=== PATIENT | female | born 1965 | race Asian ===

== ENCOUNTER 2018-04-20 18:19 | Outpatient (CLI) | payer OTHER | END 2018-04-20 18:20 | disposition critical access hospital (66) | LOC: EMS 18:19 | PROVIDERS: ATTEND Surgery | DX: R06.02 Shortness of breath (principal); R07.9 Chest pain, unspecified; R11.0 Nausea | CPT/HCPCS: A0425; A0427 ==

== ENCOUNTER 2018-04-20 18:41 | Emergency (ER) | payer OTHER ==
[2018-04-20] MEDS ORDERED: LORazepam 2 MG/ML VIAL IVP STA (19:00)
--- NOTE | 2018-04-20 19:06 | ED Physician Documentation ---
History of Present Illness - Stated complaint Stated Complaint: ANXIETY/CP - Chief complaint Chief Complaint: Resp - History obtained from History obtained from: Patient, EMS - History of Present Illness Timing: How many hours ago (1) Pain level max: 2 Pain level now: 0 Improved by: rest Worsened by: emotional upset - Additonal information Additional information: Patient is a 52-year-old female who was accused of shoplifting today, during questioning she felt herself having a panic attack and 911 was called for her anxiety. She had some chest tightness at that time. Now that she has been removed from the situation she states that her anxiety is better, and the pain has resolved. She did not take her clonazepam yet today. Review of Systems Ten Systems: 10 systems reviewed and negative Constitutional: denies: Fever, Chills Eyes: denies: Decreased vision Ears: denies: Ear pain Nose: denies: Rhinorrhea / runny nose, Congestion Cardiac: denies: Calf pain Respiratory: denies: Cough GI: denies: Abdominal Pain, Nausea, Vomiting, Diarrhea Skin: denies: Rash Musculoskeletal: denies: Neck pain, Back pain Neurologic: denies: Focal weakness, Numbness, Headache Psychiatric: reports: Anxiety. denies: Suicidal, Homicidal, Hallucinations PD PAST MEDICAL HISTORY - Past Medical History Past Medical History: Yes Cardiovascular: Hypertension, High cholesterol Psych: Anxiety - Past Surgical History Past Surgical History: Yes - Present Medications Home Medications: Ambulatory Orders Medication Instructions Recorded Confirmed Telmisartan [Micardis] 40 mg PO DAILY 06/12/15 06/12/15 Clonazepam 0.25 mg PO 04/20/18 04/20/18 - Allergies Allergies/Adverse Reactions: Allergies Allergy/AdvReac Type Severity Reaction Status Date / Time ammonia Allergy Rash Verified 04/20/18 18:50 peroxide Allergy Rash Uncoded 04/20/18 18:50 - Social History Does the pt smoke?: No Smoking Status: Never smoker Does the pt drink ETOH?: No Does the pt have substance abuse?: No PD ED PE NORMAL - Vitals Vital signs reviewed: Yes - General General: Alert and oriented X 3, Other (Appears anxious and tearful) - HEENT HEENT: PERRL, Moist mucous membranes - Neck Neck: Supple, no meningeal sign - Cardiac Cardiac: RRR, Strong equal pulses - Respiratory Respiratory: No respiratory distress, Clear bilaterally - Abdomen Abdomen: Soft, Non tender, Non distended - Derm Derm: Warm and dry - Extremities Extremities: No edema, No calf tenderness / cord - Neuro Neuro: Alert and oriented X 3 - Psych Psych: Normal mood, Normal affect Results - Vitals Vitals: Vital Signs - 24 hr 04/20/18 04/20/18 18:42 19:29 Temperature 37.5 C Heart Rate 97 120 H Respiratory 18 24 Rate Blood Pressure 130/87 H 155/98 H O2 Saturation 98 97 Oxygen O2 Source Room air - EKG (time done) 1850 Rate: Rate (enter#) (103) Rhythm: Sinus tachycardia [place]: Normal Intervals: Normal MA QRS: Normal Ischemia: Normal ST segments PD MEDICAL DECISION MAKING - ED course Complexity details: reviewed results, re-evaluated patient, considered differential (No ST elevation MD, no aortic dissection, no PE, no tension pneumothorax, no aortic aneurysm), d/w patient ED course: 52-year-old female with a panic attack today. Feels better after Ativan. Symptoms resolved. Her triage screen was positive for suicidal ideation. She adamantly denies feeling suicidal currently to me. States that she has 2 boys to live for and that she would not harm herself. She states she will follow-up with her doctor about her depression and anxiety. Patient counseled regarding signs and symptoms for which I believe and urgent re-evaluation would be necessary. Patient with good understanding of and agreement to plan and is comfortable going home at this time This document was made in part using voice recognition software. While efforts are made to proofread this document, sound alike and grammatical errors may occur. Departure - Departure Disposition: 01 Home, Self Care Clinical Impression: Panic attack Condition: Good Instructions: ED Panic Attack Follow-Up: your,doctor tomorrow [Other] Comments: You need to follow-up with your doctor tomorrow about your anxiety. You should take your normal medications at home. You also need to talk to your doctor about your depression. You state you are not suicidal currently and that you want to live for your boys. You have contracted for safety and states that you will not harm yourself. Crisis Line and is available to talk to someone Http://www.[employer].org is also available to chat with someone online if you prefer. There are also many resources on this website and apps for your phone to help with your mental health You can also text the word START to 655-583-4671 to chat with someome via text. Discharge Date/Time: 04/20/18 19:35
[2018-04-20 19:31] VITALS: BP 155/98
== END 2018-04-20 19:35 | disposition home or self-care (01) ==
LOC: EDUNIT# → ED 18:41
DX: F41.0 Panic disorder [episodic paroxysmal anxiety] (principal); R00.0 Tachycardia, unspecified; I10 Essential (primary) hypertension; E78.00 Pure hypercholesterolemia, unspecified
CPT/HCPCS: 93005; 96374; 99283; J2060

== ENCOUNTER 2019-12-30 13:18 | Outpatient (CLI) | payer OTHER ==
--- NOTE | 2019-12-30 15:09 | MRI Report ---
PROCEDURE: Cervical Spine W/O INDICATIONS: PARETHESIA OF SKIN TECHNIQUE: Noncontrast sagittal T1 spin echo and T2 fast spin echo, sagittal STIR, foraminal oblique sagittal T2 fast spin echo, and axial gradient echo or T2 fast spin echo through the cervical spine. COMPARISON: Prior plain film imaging 06/12/2015 reviewed in this patient who has undergone prior ante rior fusion plating crossing C4-C5.. FINDINGS: Image quality: Excellent. Alignment and Curvature: There is normal bony alignment. Bone Marrow: Marrow demonstrates normal overall signal. There is stable positioning of a C4-C5 ante rior fusion plate, producing metal artifact in the immediate adjacent vertebral bodies, but no adjace nt inflammation on this point found that would indicate evidence of loosening or low-grade infection. Spinal Cord: Visualized spinal cord has normal size and signal. No cerebellar tonsillar herniation. Paraspinous Soft Tissues: No paravertebral masses. Prevertebral soft tissues are normal in thicknes s. C2-C3: Normal in appearance. C3-C4: Normal in appearance. C4-C5: Anterior fusion plating, quality of visualization at the vertebral body marrow space is mildl y compromised by metal artifact as a result.. C5-C6: Mild degenerative disc disease with a slight posterior disc bulge, which does produce mild to moderate spinal stenosis as a result. There is effacement of CSF from the anterior thecal sac at and immediately adjacent to the midline. C6-C7: The C6 vertebral body demonstrates presence of a presumed vertebral body hemangioma centrally, and there is a small posterior disc bulge without significant spinal or foraminal stenosis. C7-T1: Normal in appearance. IMPRESSION: Prior C4-C5 anterior fusion plating, which shows no sign of disruption or adjacent inflammation. The current study shows normal alignment established, and mild degenerative disc disease at C5-6 and C6-7 with secondary effacement of anterior CSF within the thecal sac at each of these 2 levels, but witho ut distortion of the adjacent low cervical cord. Overall a definite site of new spinal or foraminal s tenosis is not found. Incidental note is made of a small vertebral body marrow space hemangioma at the C6 segment. Reviewed by: Nghia Hernandez MD on 12/30/2019 3:07 PM PDT Approved by: Nghia Hernandez MD on 12/30/2019 3:07 PM PDT Station ID: [id number]
== END 2019-12-30 13:19 | disposition home or self-care (01) ==
LOC: DI 13:18
PROVIDERS: ATTEND Internal Medicine
DX: M50.322 Other cervical disc degeneration at C5-C6 level (principal); Z98.1 Arthrodesis status
CPT/HCPCS: 72141

== ENCOUNTER 2020-04-08 13:16 | Outpatient (CLI) | payer OTHER ==
--- NOTE | 2020-04-11 13:22 | Mammography Report ---
BILATERAL DIGITAL SCREENING MAMMOGRAM 3D/2D: 04/08/2020 CLINICAL: Routine screening. Comparison is made to exams dated: 07/14/2018 mammogram and 04/04/2015 mammogram - [facility]. There are scattered fibroglandular elements in both breasts. No significant masses, calcifications, or other findings are seen in either breast. There has been no significant interval change. IMPRESSION: NEGATIVE There is no mammographic evidence of malignancy. A 1 year screening mammogram is recommended. This exam was interpreted at Station ID: [id number]. NOTE: For mammograms, a report in lay terms will be sent to the patient. Approximately 15% of breast malignancies will not be visualized mammographically. In the management of a palpable breast mass, a negative mammogram must not discourage biopsy of a clinically suspicious lesion. Electronically Signed By: Scotty vanegas/jarrell:04/08/2020 15:13:48 ACR BI-RADS Category 1: Negative 3341F PARENCHYMAL PATTERN: (A) - The breast(s) demonstrate(s) scattered fibroglandular densities. BI-RADS CATEGORY: (1) - 1 RECOMMENDATION: (ANNUAL) - Recommend routine annual screening mammography. [id number] 1 year screening LATERALITY: (B)
== END 2020-04-08 13:17 | disposition home or self-care (01) ==
LOC: DI.N 13:16
DX: Z12.31 Encounter for screening mammogram for malignant neoplasm of breast (principal)

== ENCOUNTER 2021-07-25 14:04 | Outpatient (CLI) | payer OTHER ==
--- NOTE | 2021-07-26 09:37 | MRI Report ---
PROCEDURE: Shoulder RT W/O INDICATIONS: PAIN IN RIGHT SHOULDER TECHNIQUE: Noncontrast oblique coronal T2 fast spin echo with fat saturation, oblique sagittal T1 spin echo and T2 fast spin echo with fat saturation, axial T1 spin echo and T2 fast spin echo with fat saturation t hrough the shoulder. COMPARISON: None. Findings: Supraspinatus: Moderate supraspinatus tendinopathy with partial bursal and articular surface tears (6 01-12). Infraspinatus: Mild tendinopathy with small partial articular surface tear. Subscapularis: No evidence of tear. Teres minor: No evidence of tear. Labrum: No evidence of tear. Biceps tendon: No evidence of subluxation or tear. Fluid surrounds the tendon, concerning for tenosyn ovitis. Acromioclavicular joint: Normal alignment. Mild to moderate arthrosis with T2 hyperintense signal wi thin the articulation. Muscle: Grade 1/2 atrophy of the supraspinatous. Bones: No significant abnormality. Specifically, no evidence of fracture, contusion, or necrosis. Miscellaneous: Small glenohumeral joint effusion which extends into the superior subscapular recess. Minimal subacromial/subdeltoid bursal fluid. No intra-articular bodies. Intact coracoclavicular ligament. IMPRESSION: 1. Moderate supraspinatus tendinopathy with partial bursal and articular surface tears. 2. Mild infraspinatus tendinopathy with small partial articular surface tear. 3. Mild biceps tenosynovitis. 4. Small glenohumeral joint effusion. 5. Mild to moderate AC joint arthrosis. Reviewed by: Brian Leal MD on 07/26/2021 9:36 AM PDT Approved by: Brian Leal MD on 07/26/2021 9:36 AM PDT Station ID: [id number]
== END 2021-07-25 14:05 | disposition home or self-care (01) ==
LOC: DI 14:04
PROVIDERS: ATTEND Student in an Organized Health Care Education/Training Program
DX: M75.111 Incomplete rotator cuff tear or rupture of right shoulder, not specified as traumatic (principal); M19.011 Primary osteoarthritis, right shoulder; M25.411 Effusion, right shoulder; M75.21 Bicipital tendinitis, right shoulder